=== PATIENT | female | born 1970 | race Caucasian/White ===

== ENCOUNTER → 2017-12-04 | Outpatient (CLI) | payer OTHER | LOC: RAD 09:25 | DX: J32.0 Chronic maxillary sinusitis (principal) ==

== ENCOUNTER → 2019-01-20 | Outpatient (CLI) | payer OTHER ==
[2019-01-20 10:44] LABS: EOS # 0.1 (0.04-0.40); EOS % 0.7 % (1.0-5.0); HEMATOCRIT 43.5 % (37.0-47.0); HEMOGLOBIN 13.8 g/dL (12.5-16.0); LYMPH# 2.9 (1.50-4.00); MEAN CELL VOLUME 93 fl (78-100); MEAN CORPUSCULAR HEMOGLOBIN 30 pg (27-31); MEAN CORPUSCULAR HGB CONC 32 g/dL (33-37); MEAN PLATELET VOLUME 9.3 fl (7.4-10.4); MONO # 0.7 (0.20-0.80); NEU # 6.8 (1.40-6.50); PLATELET COUNT 318 K/mm3 (130-400); RED BLOOD COUNT 4.66 M/mm3 (4.10-5.30); WHITE BLOOD COUNT 10.5 K/mm3 (4.8-10.8)
[2019-01-20 10:56] LABS: ALBUMIN 4.7 g/dL (3.5-5.0); CALCIUM 9.4 mg/dL (8.4-10.2); TOTAL BILIRUBIN 0.4 mg/dL (0.2-1.3); TOTAL PROTEIN 8.5 g/dL (6.3-8.2)
== END ==
LOC: LAB 09:21
PROVIDERS: Internal Medicine
DX: Z00.00 Encounter for general adult medical examination without abnormal findings (principal)

== ENCOUNTER 2019-04-13 09:00 | Outpatient (RCR) | payer OTHER ==
[~2019-04-13 09:00] MED LIST: CELECOXIB200 M1 PO; CYANOCOBAL1000 MCG/1 SQ; LEVOTHYROXINE112 MCG PO; LIOTHYRONINE S25 MC1 PO; NATURE'S BLEN2000 IU PO; PROBIOTIC1 EAC1 PO
== END 2019-04-19 ==
LOC: PT
DX: M76.31 Iliotibial band syndrome, right leg (principal); M70.61 Trochanteric bursitis, right hip

== ENCOUNTER → 2019-09-02 | Outpatient (CLI) | payer OTHER ==
[2019-02-23 23:06] VITALS: BP 124/88
[2019-09-02 12:42] LABS: EOS # 0.1 (0.04-0.40); HEMATOCRIT 45.5 % (37.0-47.0); HEMOGLOBIN 14.7 g/dL (12.5-16.0); LYMPH# 2.7 (1.50-4.00); MEAN CELL VOLUME 91 fl (78-100); MEAN CORPUSCULAR HEMOGLOBIN 29 pg (27-31); MEAN CORPUSCULAR HGB CONC 32 g/dL (33-37); MEAN PLATELET VOLUME 9.5 fl (7.4-10.4); MONO # 0.5 (0.20-0.80); NEU # 5.9 (1.40-6.50); PLATELET COUNT 284 K/mm3 (130-400); RED BLOOD COUNT 5.01 M/mm3 (4.10-5.30); RED CELL DISTRIBUTION WIDTH 13.4 % (11.5-14.5); WHITE BLOOD COUNT 9.2 K/mm3 (4.8-10.8)
[2019-09-02 13:43] LABS: ALBUMIN 4.3 g/dL (3.5-5.0); POTASSIUM 4.1 mmol/L (3.5-5.1)
[2019-09-02 13:44] LABS: CALCIUM 9.5 mg/dL (8.3-10.5)
[2019-09-02 13:45] LABS: TOTAL PROTEIN 7.8 g/dL (6.4-8.3)
[2019-09-02 13:47] LABS: TOTAL BILIRUBIN 0.5 mg/dL (0.2-1.2)
[2019-09-02 22:56] LABS: FOLLICLE STIMULATING HORMONE 4.4 mIU/mL (()); LUTENIZING HORMONE 3.4 mIU/mL (())
== END ==
LOC: LAB 11:48
PROVIDERS: Internal Medicine
DX: E53.8 Deficiency of other specified B group vitamins (principal); E78.5 Hyperlipidemia, unspecified; K90.9 Intestinal malabsorption, unspecified; N95.1 Menopausal and female climacteric states; E03.9 Hypothyroidism, unspecified; R73.02 Impaired glucose tolerance (oral)

== ENCOUNTER → 2019-11-25 | Outpatient (CLI) | payer OTHER ==
[2019-02-23 23:06] VITALS: BP 124/88
[2019-11-25 14:49] LABS: EOS # 0.2 (0.04-0.40); EOS % 2.1 % (1.0-5.0); HEMATOCRIT 43.5 % (37.0-47.0); HEMOGLOBIN 13.9 g/dL (12.5-16.0); LYMPH# 3.3 (1.50-4.00); MEAN CELL VOLUME 92 fl (78-100); MEAN CORPUSCULAR HEMOGLOBIN 29 pg (27-31); MEAN CORPUSCULAR HGB CONC 32 g/dL (33-37); MEAN PLATELET VOLUME 9.5 fl (7.4-10.4); MONO # 0.7 (0.20-0.80); NEU # 6.3 (1.40-6.50); PLATELET COUNT 305 K/mm3 (130-400); RED BLOOD COUNT 4.74 M/mm3 (4.10-5.30); RED CELL DISTRIBUTION WIDTH 13.8 % (11.5-14.5); WHITE BLOOD COUNT 10.6 K/mm3 (4.8-10.8)
[2019-11-25 15:00] LABS: POTASSIUM 4.2 mmol/L (3.5-5.1)
[2019-11-25 15:01] LABS: ALBUMIN 4.4 g/dL (3.5-5.0)
[2019-11-25 15:02] LABS: CALCIUM 9.8 mg/dL (8.3-10.5)
[2019-11-25 15:03] LABS: TOTAL PROTEIN 7.7 g/dL (6.4-8.3)
[2019-11-25 15:05] LABS: TOTAL BILIRUBIN 0.6 mg/dL (0.2-1.2)
== END ==
LOC: LAB 14:33
PROVIDERS: Internal Medicine
DX: Z00.00 Encounter for general adult medical examination without abnormal findings (principal); E53.8 Deficiency of other specified B group vitamins; K90.89 Other intestinal malabsorption

== ENCOUNTER 2020-07-10 16:00 | Inpatient (IN) | payer OTHER ==
[~2020-07-10] VITALS: Ht 172.7 cm; Wt 104.5 kg
[~2020-07-10 16:00] MED LIST changes: +CYANOCOBAL1000 MCG/1 IM; -CYANOCOBAL1000 MCG/1 SQ; -NATURE'S BLEN2000 IU PO; +VITAMIN D250 MC1 PO
[2020-07-10 16:48] VITALS: BP 113/77
[2020-07-10 16:58] LABS: ALBUMIN 4.4 g/dL (3.5-5.0); POTASSIUM 4.5 mmol/L (3.5-5.1)
[2020-07-10 16:59] LABS: CALCIUM 9.8 mg/dL (8.3-10.5)
[2020-07-10 17:01] LABS: TOTAL PROTEIN 8.5 g/dL (6.4-8.3)
[2020-07-10 17:03] LABS: TOTAL BILIRUBIN 0.7 mg/dL (0.2-1.2)
[2020-07-10 17:15] LABS: HEMATOCRIT 43.1 % (37.0-47.0); HEMOGLOBIN 13.9 g/dL (12.5-16.0); MEAN CELL VOLUME 92 fl (78-100); MEAN CORPUSCULAR HEMOGLOBIN 30 pg (27-31); MEAN CORPUSCULAR HGB CONC 32 g/dL (33-37); MEAN PLATELET VOLUME 9.3 fl (7.4-10.4); PLATELET COUNT 273 K/mm3 (130-400); RED CELL DISTRIBUTION WIDTH 13.2 % (11.5-14.5); WHITE BLOOD COUNT 20.3 K/mm3 (4.8-10.8)
[2020-07-10 17:29] LABS: D-DIMER 2.22 mg/L FEU (0.15-0.50)
[2020-07-10 17:38] LABS: LYMPHOCYTE 6 % (20-51); MONOCYTE 4 % (3-10); NEUTROPHILS 90 % (42-75)
[2020-07-10 17:44] LABS: URINE APPEARANCE CLOUDY; URINE BILIRUBIN NEGATIVE (NEGATIVE); URINE BLOOD 50 ery/uL (NEGATIVE); URINE COLOR YELLOW; URINE GLUCOSE NEGATIVE (NEGATIVE); URINE KETONE NEGATIVE (NEGATIVE); URINE LEUKOCYTE ESTERASE 1+ (NEGATIVE); URINE NITRATE NEGATIVE (NEGATIVE); URINE PROTEIN(semi-quant) 1+ mg/dL (NEGATIVE); URINE UROBILINOGEN NORMAL (NORMAL); URINE WBC 16-30 /hpf (0-3)
[2020-07-10 17:45] LABS: URINE MUCUS PRESENT (NOT PRESENT)
[2020-07-10 18:04] LABS: ERYTHROCYTE SEDIMENTATION RATE 17 mm/hr (0-20)
[2020-07-10] MEDS ORDERED: VYVANSE40 MG PO (18:31)
[2020-07-10] MEDS ORDERED: LAMOTRIGINE25 M1 PO (18:34)
[2020-07-10] MEDS ORDERED: DULOXETINE30 MG PO (18:38)
[2020-07-10 19:38] VITALS: BP 86/56
[2020-07-10 20:08] VITALS: BP 86/56
[2020-07-10 21:20] VITALS: BP 86/60
[2020-07-10 22:01] VITALS: BP 106/71
[2020-07-10 23:08] VITALS: BP 106/73
[2020-07-11] VITALS (13 sets, daily range): BP systolic 92–127; BP diastolic 59–86
[2020-07-11 05:54] LABS: EOS # 0.1 (0.04-0.40); EOS % 0.5 % (1.0-5.0); HEMATOCRIT 36.5 % (37.0-47.0); HEMOGLOBIN 11.5 g/dL (12.5-16.0); LYMPH# 3.2 (1.50-4.00); MEAN CELL VOLUME 93 fl (78-100); MEAN CORPUSCULAR HEMOGLOBIN 29 pg (27-31); MEAN CORPUSCULAR HGB CONC 32 g/dL (33-37); MEAN PLATELET VOLUME 8.9 fl (7.4-10.4); MONO # 1.2 (0.20-0.80); NEU # 8.6 (1.40-6.50); PLATELET COUNT 255 K/mm3 (130-400); RED BLOOD COUNT 3.92 M/mm3 (4.10-5.30); RED CELL DISTRIBUTION WIDTH 13.4 % (11.5-14.5); WHITE BLOOD COUNT 13.1 K/mm3 (4.8-10.8)
[2020-07-11 09:23] LABS: ALBUMIN 3.3 g/dL (3.5-5.0); POTASSIUM 3.8 mmol/L (3.5-5.1)
[2020-07-11 09:25] LABS: CALCIUM 8.3 mg/dL (8.3-10.5)
[2020-07-11 09:26] LABS: TOTAL PROTEIN 6.2 g/dL (6.4-8.3)
[2020-07-11 09:28] LABS: TOTAL BILIRUBIN 0.4 mg/dL (0.2-1.2)
[2020-07-12 01:59] VITALS: BP 122/83
[2020-07-12 06:11] VITALS: BP 115/78
[2020-07-12 09:21] LABS: EOS # 0.1 (0.04-0.40); EOS % 0.5 % (1.0-5.0); HEMATOCRIT 37.5 % (37.0-47.0); LYMPH# 1.8 (1.50-4.00); MEAN CELL VOLUME 92 fl (78-100); MEAN CORPUSCULAR HEMOGLOBIN 30 pg (27-31); MEAN CORPUSCULAR HGB CONC 32 g/dL (33-37); MEAN PLATELET VOLUME 8.8 fl (7.4-10.4); MONO # 0.9 (0.20-0.80); NEU # 8.4 (1.40-6.50); PLATELET COUNT 259 K/mm3 (130-400); RED BLOOD COUNT 4.07 M/mm3 (4.10-5.30); RED CELL DISTRIBUTION WIDTH 12.8 % (11.5-14.5); WHITE BLOOD COUNT 11.2 K/mm3 (4.8-10.8)
[2020-07-12 09:27] LABS: POTASSIUM 4.2 mmol/L (3.5-5.1)
[2020-07-12 09:28] LABS: CALCIUM 9.1 mg/dL (8.3-10.5)
[2020-07-12 10:33] VITALS: BP 138/84
[2020-07-12] MEDS ORDERED: CIPRO500 M1 PO (10:58)
== END 2020-07-12 11:50 | disposition home or self-care (01) | DRG 872 ==
LOC: ED 16:00 → MED/SURG 19:07
PROVIDERS: Physician Assistant; ADMIT Nurse Practitioner Family
DX: A41.9 Sepsis, unspecified organism (principal); N10 Acute pyelonephritis; N17.9 Acute kidney failure, unspecified; E03.9 Hypothyroidism, unspecified; F41.9 Anxiety disorder, unspecified; M79.7 Fibromyalgia; E78.5 Hyperlipidemia, unspecified; E66.9 Obesity, unspecified; G47.33 Obstructive sleep apnea (adult) (pediatric); F90.9 Attention-deficit hyperactivity disorder, unspecified type; F31.9 Bipolar disorder, unspecified; F32.9 Major depressive disorder, single episode, unspecified; D51.9 Vitamin B12 deficiency anemia, unspecified; R79.89 Other specified abnormal findings of blood chemistry; Z90.710 Acquired absence of both cervix and uterus
CPT/HCPCS: J0744; J1650; J7030; J7120; Q9967

== ENCOUNTER → 2020-08-27 | Outpatient (CLI) | payer OTHER ==
[~2020-08-27] MED LIST changes: +CIPRO500 M1 PO; +DULOXETINE30 MG PO; +LAMOTRIGINE25 M1 PO; +VYVANSE40 MG PO
[2020-08-27 15:49] LABS: EOS # 0.2 (0.04-0.40); EOS % 1.4 % (1.0-5.0); HEMATOCRIT 42.6 % (37.0-47.0); HEMOGLOBIN 13.5 g/dL (12.5-16.0); MEAN CELL VOLUME 92 fl (78-100); MEAN CORPUSCULAR HEMOGLOBIN 29 pg (27-31); MEAN CORPUSCULAR HGB CONC 32 g/dL (33-37); NEU # 5.6 (1.40-6.50); PLATELET COUNT 319 K/mm3 (130-400); RED BLOOD COUNT 4.61 M/mm3 (4.10-5.30); RED CELL DISTRIBUTION WIDTH 13.3 % (11.5-14.5); WHITE BLOOD COUNT 11.4 K/mm3 (4.8-10.8)
[2020-08-27 15:50] LABS: LYMPH# 4.6 (1.50-4.00)
[2020-08-27 16:00] LABS: ALBUMIN 4.2 g/dL (3.5-5.0)
[2020-08-27 16:01] LABS: CALCIUM 9.4 mg/dL (8.3-10.5)
[2020-08-27 16:02] LABS: URINE APPEARANCE CLEAR; URINE BILIRUBIN NEGATIVE (NEGATIVE); URINE BLOOD NEGATIVE (NEGATIVE); URINE COLOR YELLOW; URINE GLUCOSE NEGATIVE (NEGATIVE); URINE KETONE NEGATIVE (NEGATIVE); URINE LEUKOCYTE ESTERASE NEGATIVE (NEGATIVE); URINE NITRATE NEGATIVE (NEGATIVE); URINE PROTEIN(semi-quant) TRACE mg/dL (NEGATIVE); URINE UROBILINOGEN NORMAL (NORMAL)
[2020-08-27 16:04] LABS: TOTAL BILIRUBIN 0.4 mg/dL (0.2-1.2)
== END ==
LOC: LAB 15:35
PROVIDERS: Internal Medicine
DX: Z00.00 Encounter for general adult medical examination without abnormal findings (principal); R30.0 Dysuria

== ENCOUNTER → 2020-10-04 | Outpatient (CLI) | payer OTHER ==
[2020-10-04 17:10] LABS: URINE APPEARANCE HAZY; URINE BILIRUBIN NEGATIVE (NEGATIVE); URINE BLOOD NEGATIVE (NEGATIVE); URINE COLOR YELLOW; URINE GLUCOSE NEGATIVE (NEGATIVE); URINE KETONE NEGATIVE (NEGATIVE); URINE LEUKOCYTE ESTERASE NEGATIVE (NEGATIVE); URINE NITRATE NEGATIVE (NEGATIVE); URINE PROTEIN(semi-quant) TRACE mg/dL (NEGATIVE); URINE UROBILINOGEN NORMAL (NORMAL)
[2020-10-04 17:11] LABS: URINE MUCUS PRESENT (NOT PRESENT)
== END ==
LOC: AMSURD 16:04 → LAB 16:04
PROVIDERS: Internal Medicine
DX: E03.4 Atrophy of thyroid (acquired) (principal); R30.0 Dysuria

== ENCOUNTER → 2020-10-09 | Outpatient (CLI) | payer OTHER | LOC: AMSURD 10:36 | DX: R07.9 Chest pain, unspecified (principal) ==

== ENCOUNTER → 2021-02-01 | Outpatient (CLI) | payer OTHER | LOC: LAB 10:13 | DX: R09.81 Nasal congestion (principal); R53.83 Other fatigue; R11.0 Nausea; R51.9 Headache, unspecified; Z20.822 Contact with and (suspected) exposure to COVID-19 ==

== ENCOUNTER → 2021-03-22 | Outpatient (CLI) | payer OTHER | LOC: RAD 10:10 | DX: M25.562 Pain in left knee (principal) ==

== ENCOUNTER 2021-04-08 09:54 | Outpatient (RCR) | payer OTHER | END 2021-07-07 | disposition still patient (30) | LOC: PT | DX: M25.562 Pain in left knee (principal) ==

== ENCOUNTER → 2021-04-29 | Outpatient (CLI) | payer OTHER | LOC: RAD 16:45 | DX: S83.512A Sprain of anterior cruciate ligament of left knee, initial encounter (principal); M22.2X2 Patellofemoral disorders, left knee ==

== ENCOUNTER → 2021-09-26 | Outpatient (CLI) | payer OTHER ==
[2021-09-26 12:19] LABS: BASO # 0.03 K/mm3 (0.02-0.10); EOS # 0.19 K/mm3 (0.04-0.40); EOS % 2.3 % (1.0-5.0); HEMATOCRIT 45.8 % (37.0-47.0); HEMOGLOBIN 14.4 g/dL (12.5-16.0); LYMPH# 2.58 K/mm3 (1.50-4.00); MEAN CELL VOLUME 95 fl (78-100); MEAN CORPUSCULAR HEMOGLOBIN 30 pg (27-31); MEAN CORPUSCULAR HGB CONC 31 g/dL (33-37); MEAN PLATELET VOLUME 8.8 fl (7.4-10.4); MONO # 0.45 K/mm3 (0.20-0.80); NEU # 5.13 K/mm3 (1.40-6.50); PLATELET COUNT 315 K/mm3 (130-400); RED BLOOD COUNT 4.82 M/mm3 (4.10-5.30); RED CELL DISTRIBUTION WIDTH 12.6 % (11.5-14.5); WHITE BLOOD COUNT 8.4 K/mm3 (4.8-10.8)
[2021-09-26 13:30] LABS: URINE APPEARANCE HAZY; URINE COLOR YELLOW
[2021-09-26 13:31] LABS: URINE BILIRUBIN NEGATIVE (NEGATIVE); URINE BLOOD NEGATIVE (NEGATIVE); URINE GLUCOSE NEGATIVE (NEGATIVE); URINE KETONE NEGATIVE (NEGATIVE); URINE LEUKOCYTE ESTERASE NEGATIVE (NEGATIVE); URINE NITRATE NEGATIVE (NEGATIVE); URINE PROTEIN(semi-quant) TRACE mg/dL (NEGATIVE); URINE UROBILINOGEN NORMAL (NORMAL); URINE WBC 0-1 /hpf (0-3)
[2021-09-26 14:03] LABS: ALBUMIN 4.4 g/dL (3.5-5.0)
[2021-09-26 14:04] LABS: POTASSIUM 4.6 mmol/L (3.5-5.1)
[2021-09-26 14:05] LABS: CALCIUM 9.7 mg/dL (8.3-10.5)
[2021-09-26 14:06] LABS: TOTAL PROTEIN 8.1 g/dL (6.4-8.3)
[2021-09-26 14:08] LABS: TOTAL BILIRUBIN 0.7 mg/dL (0.2-1.2)
[2021-09-26 14:12] LABS: MAGNESIUM 2.02 mg/dL (1.60-2.60)
== END ==
LOC: LAB 11:17
PROVIDERS: Internal Medicine
DX: Z01.818 Encounter for other preprocedural examination (principal)

== ENCOUNTER → 2021-10-04 | Outpatient (CLI) | payer OTHER ==
[2021-10-04 16:01] LABS: URINE APPEARANCE CLEAR; URINE COLOR YELLOW
[2021-10-04 16:02] LABS: PH-URINE 7.5 (5.0 - 8.0); URINE BILIRUBIN NEGATIVE (NEGATIVE); URINE BLOOD NEGATIVE (NEGATIVE); URINE GLUCOSE NEGATIVE (NEGATIVE); URINE KETONE NEGATIVE (NEGATIVE); URINE LEUKOCYTE ESTERASE NEGATIVE (NEGATIVE); URINE MUCUS PRESENT (NOT PRESENT); URINE NITRATE NEGATIVE (NEGATIVE); URINE PROTEIN(semi-quant) TRACE mg/dL (NEGATIVE); URINE UROBILINOGEN NORMAL (NORMAL); URINE WBC 0-1 /hpf (0-3)
== END ==
LOC: LAB 10:50
PROVIDERS: Internal Medicine
DX: Z01.89 Encounter for other specified special examinations (principal)

== ENCOUNTER 2021-10-14 09:04 | Outpatient (RCR) | payer OTHER | END 2021-10-25 | disposition home or self-care (01) | LOC: OT 09:04 | DX: R20.2 Paresthesia of skin (principal); R20.0 Anesthesia of skin ==

== ENCOUNTER 2021-11-18 13:26 | Outpatient (RCR) | payer OTHER | END 2021-11-25 | disposition home or self-care (01) | LOC: PT | DX: S83.512A Sprain of anterior cruciate ligament of left knee, initial encounter (principal) ==

== ENCOUNTER 2021-12-02 13:00 | Outpatient (RCR) | payer OTHER | END 2021-12-23 | disposition home or self-care (01) | LOC: PT | DX: S83.512D Sprain of anterior cruciate ligament of left knee, subsequent encounter (principal); X58.XXXD Exposure to other specified factors, subsequent encounter ==

== ENCOUNTER 2021-12-26 13:00 | Outpatient (RCR) | payer OTHER | END 2022-01-23 | disposition home or self-care (01) | LOC: PT | DX: S83.512D Sprain of anterior cruciate ligament of left knee, subsequent encounter (principal); X58.XXXD Exposure to other specified factors, subsequent encounter ==

== ENCOUNTER 2022-01-27 11:30 | Outpatient (RCR) | payer OTHER | END 2022-02-22 | disposition still patient (30) | LOC: PT | DX: S83.512D Sprain of anterior cruciate ligament of left knee, subsequent encounter (principal); X58.XXXD Exposure to other specified factors, subsequent encounter ==

== ENCOUNTER → 2022-04-08 | Outpatient (CLI) | payer OTHER ==
[2022-04-08 15:36] LABS: BASO # 0.02 K/mm3 (0.02-0.10); EOS # 0.17 K/mm3 (0.04-0.40); EOS % 2.2 % (1.0-5.0); HEMATOCRIT 39.8 % (37.0-47.0); LYMPH# 2.58 K/mm3 (1.50-4.00); MEAN CELL VOLUME 92 fl (78-100); MEAN CORPUSCULAR HEMOGLOBIN 30 pg (27-31); MEAN CORPUSCULAR HGB CONC 33 g/dL (33-37); MEAN PLATELET VOLUME 9.1 fl (7.4-10.4); MONO # 0.52 K/mm3 (0.20-0.80); NEU # 4.45 K/mm3 (1.40-6.50); PLATELET COUNT 305 K/mm3 (130-400); RED BLOOD COUNT 4.34 M/mm3 (4.10-5.30); RED CELL DISTRIBUTION WIDTH 12.9 % (11.5-14.5); WHITE BLOOD COUNT 7.7 K/mm3 (4.8-10.8)
[2022-04-08 15:43] LABS: POTASSIUM 3.8 mmol/L (3.5-5.1)
[2022-04-08 15:44] LABS: ALBUMIN 4.2 g/dL (3.5-5.0)
[2022-04-08 15:45] LABS: CALCIUM 9.7 mg/dL (8.3-10.5)
[2022-04-08 15:46] LABS: TOTAL PROTEIN 7.5 g/dL (6.4-8.3)
[2022-04-08 15:48] LABS: TOTAL BILIRUBIN 0.7 mg/dL (0.2-1.2)
[2022-04-09 21:59] LABS: FOLATE (FOLIC ACID) 7.3 ng/mL (2.0-20.0)
== END ==
LOC: LAB 15:18
PROVIDERS: Internal Medicine
DX: E03.4 Atrophy of thyroid (acquired) (principal); K90.9 Intestinal malabsorption, unspecified; R25.1 Tremor, unspecified

== ENCOUNTER 2022-09-17 08:49 | Outpatient (RCR) | payer OTHER | END 2022-09-24 | disposition still patient (30) | LOC: OT | DX: G56.02 Carpal tunnel syndrome, left upper limb (principal); G56.22 Lesion of ulnar nerve, left upper limb ==

== ENCOUNTER 2022-11-03 09:01 | Outpatient (RCR) | payer BC | END 2022-11-25 | disposition home or self-care (01) | LOC: OT | DX: G56.02 Carpal tunnel syndrome, left upper limb (principal); G56.22 Lesion of ulnar nerve, left upper limb ==

== ENCOUNTER 2022-12-24 08:00 | Outpatient (RCR) | payer BC | END 2023-01-07 16:17 | disposition home or self-care (01) | LOC: PT 08:00 | DX: M18.9 Osteoarthritis of first carpometacarpal joint, unspecified (principal); M75.42 Impingement syndrome of left shoulder ==

== ENCOUNTER 2022-12-24 08:00 | Outpatient (RCR) | payer BC | END 2023-01-23 | disposition home or self-care (01) | LOC: OT | DX: G56.02 Carpal tunnel syndrome, left upper limb (principal); G56.22 Lesion of ulnar nerve, left upper limb ==

== ENCOUNTER → 2023-08-13 | Day surgery (SDC) | payer BC | END | disposition home or self-care (01) | LOC: MSO 07:26 | DX: Z12.11 Encounter for screening for malignant neoplasm of colon (principal); D12.5 Benign neoplasm of sigmoid colon; K57.30 Diverticulosis of large intestine without perforation or abscess without bleeding; G47.33 Obstructive sleep apnea (adult) (pediatric); E66.9 Obesity, unspecified; Z80.0 Family history of malignant neoplasm of digestive organs | CPT/HCPCS: 00811; J2704; J3010; J7120 ==

== ENCOUNTER → 2025-01-26 | Outpatient (CLI) | payer BC ==
[~2025-01-26] MED LIST changes: +ASPIRIN E.C. 8181 MG; +ATORVASTATIN CA80 MG PO; +ESTRACE0.1 MG/GM VG; +KLONOPIN 1MG1 MG PO; +METOPROLOL SUCC25 M1 PO; +QUETIAPINE FUMA25 M3 PO
== END ==
LOC: RAD 10:56
DX: M25.561 Pain in right knee (principal)

== ENCOUNTER → 2025-02-10 | Outpatient (CLI) | payer BC | LOC: RAD 15:21 | DX: M17.0 Bilateral primary osteoarthritis of knee (principal) ==